=== PATIENT | female | born 1945 | race Caucasian/White ===

== ENCOUNTER → 2017-04-03 | Outpatient (CLI) | payer MEDICARE, OTHER ==
[~2017-04-03] MED LIST: ASCO500T8 PO; ASPI-496 PO; CHOL10002 PO; LEVO175T2 PO; colestipol PO; simvastatin PO
[2017-04-03 11:25] LABS: HEMATOCRIT 42.1 % (34.6-47.8); HEMOGLOBIN 13.9 g/dL (11.7-16.4); WHITE BLOOD COUNT 9.5 x10^3/uL (3.4-10)
[2017-04-03 11:28] LABS: BLOOD UREA NITROGEN 14 mg/dL (7-18)
== END | disposition home or self-care (01) ==
LOC: STAR 09:58
PROVIDERS: ATTEND Neurological Surgery
DX: Z01.818 Encounter for other preprocedural examination (principal); M43.16 Spondylolisthesis, lumbar region; R79.1 Abnormal coagulation profile
CPT/HCPCS: 36415; 71020; 80048; 81003; 85025; 85610; 85730; 93005

== ENCOUNTER 2017-04-18 05:30 | Inpatient (IN) | payer MEDICARE, OTHER ==
[2017-04-03 10:33] VITALS: BP 160/80
[~2017-04-18] VITALS: Ht 165.1 cm; Wt 92.0 kg
[2017-04-18] MEDS ORDERED: SIMV20TA3 PO (06:33)
[2017-04-18] MEDS ORDERED: COLE1TAB2 PO (06:33)
[2017-04-18] MEDS ORDERED: LACTATED RINGERS 1,000 ML IV SCH (06:35)
[2017-04-18] MEDS ORDERED: LIDOCAINE 1%, 2ML ONE (06:38)
[2017-04-18] MEDS ORDERED: MIDAZOLAM 1 MG/ML, 2ML ONE (06:46)
[2017-04-18] MEDS ORDERED: FENTANYL PF 250 MCG/5ML ONE (06:46)
[2017-04-18] MEDS ORDERED: PROPOFOL 10 MG/ML, 20ML ONE (06:47)
[2017-04-18] MEDS ORDERED: SUCCINYLCHOLINE 20 MG/ML, 10ML ONE (06:47)
[2017-04-18] MEDS ORDERED: PROPOFOL 150 ML ONE (06:47)
[2017-04-18] MEDS ORDERED: ROCURONIUM 10 MG/ML,10ML ONE (06:47)
[2017-04-18] MEDS ORDERED: LIDOCAINE 1%, 2ML SQ PRN (07:00)
[2017-04-18] MEDS ORDERED: THROMBIN 5,000 UNIT VIAL TP ONE (07:11)
[2017-04-18] MEDS ORDERED: BUPIVACAINE/PF 0.5% ONE (07:11)
[2017-04-18] MEDS ORDERED: BACITRACIN 50,000 UNIT ONE (07:11)
[2017-04-18] MEDS ORDERED: EPINEPHRINE 1 MG/ML, 1ML ONE (07:11)
[2017-04-18] MEDS ORDERED: VANCOMYCIN 1,000 MG ONE (07:11)
[2017-04-18] MEDS ORDERED: DEXAMETHASONE 4 MG/ML, 1ML ONE ×2 (07:19)
[2017-04-18] MEDS ORDERED: CEFAZOLIN 1,000 MG ONE (07:45)
[2017-04-18] MEDS ORDERED: BUPIVACAINE/PF 0.5% INFIL ONE (08:47)
[2017-04-18] MEDS ORDERED: LABETALOL 5MG/ML, 20ML IV PRN (09:30)
[2017-04-18] MEDS ORDERED: FENTANYL PF 100 MCG/2ML IV PRN (09:30)
[2017-04-18] MEDS ORDERED: HYDROmorphone 1 MG/ML, 1ML IV PRN (09:30)
[2017-04-18] MEDS ORDERED: PROMETHAZINE 25 MG/ML, 1ML IV PRN (09:30)
[2017-04-18] MEDS ORDERED: ACETAMINOPHEN 325 MG TABLET PO PRN (09:30)
[2017-04-18] MEDS ORDERED: ONDANSETRON 2MG/ML, 2ML IVPush PRN ×2 (09:30→10:30)
[2017-04-18] MEDS ORDERED: MEPERIDINE/PF 25MG/0.5ML IVPush PRN (09:30)
[2017-04-18] MEDS ORDERED: hydrALAzine 20 MG/ML, 1ML IV PRN (09:30)
[2017-04-18] MEDS ORDERED: OXYcodone 5 MG/5 ML ORAL.SOL UDC PO PRN (09:30)
[2017-04-18] MEDS ORDERED: ONDANSETRON 2MG/ML, 2ML ONE (09:52)
[2017-04-18] MEDS ORDERED: HYDROmorphone 1 MG/ML, 1ML ONE ×2 (09:56→10:27)
[2017-04-18] MEDS ORDERED: OXYcodone 5 MG/5 ML ORAL.SOL UDC ONE (10:27)
[2017-04-18] MEDS ORDERED: ACETAMINOPHEN 650 MG/20.3 ML UDC ONE (10:27)
[2017-04-18] MEDS ORDERED: BISACODYL 10 MG SUPP PR PRN (10:30)
[2017-04-18] MEDS ORDERED: TIZANIDINE 4MG TABLET PO PRN (10:30)
[2017-04-18] MEDS ORDERED: MAGNESIUM HYDROXIDE 8%, 30ML UDC PO PRN (10:30)
[2017-04-18] MEDS ORDERED: PHARMACY MAY ADJ FOR RENAL FX MC PRN (10:30)
[2017-04-18] MEDS ORDERED: NS + 20MEQ KCL 1,000 ML IV SCH (10:30)
[2017-04-18] MEDS ORDERED: MEPERIDINE/PF 100 MG/ML IM PRN (10:30)
[2017-04-18] MEDS ORDERED: PROMETHAZINE 25 MG/ML, 1ML IM PRN (10:30)
[2017-04-18] MEDS ORDERED: DIPHENHYDRAMINE 50 MG/ML, 1ML IVPush PRN (10:30)
[2017-04-18] MEDS ORDERED: HYDROmorphone PCA 30 MG/30 ML ONE (10:40)
[2017-04-18] MEDS: HYDROmorphone PCA 30 MG/30 ML IV PRN (10:45)
[2017-04-18 12:52] VITALS: BP 120/62
[2017-04-18] MEDS: CEFAZOLIN PMX 1GM/50ML 50 ML IVPB SCH ×2 (16:04→23:32)
[2017-04-18] MEDS: SODIUM CHLORIDE FLUSH 10ML SYR IVF SCH (20:02)
[2017-04-18] MEDS: SIMVASTATIN 20 MG TABLET PO SCH (20:02)
[2017-04-18 21:10] VITALS: BP 100/63
[2017-04-18] MEDS: POTASSIUM CHLORIDE 20 MEQ in SODIUM CHLORIDE 0.9% 1,000 ML IV SCH (23:32)
[2017-04-19 00:08] VITALS: BP 110/71
[2017-04-19 04:39] VITALS: BP 113/72
[2017-04-19 05:00] LABS: HEMATOCRIT 35.3 % (34.6-47.8); HEMOGLOBIN 11.5 g/dL (11.7-16.4); WHITE BLOOD COUNT 15.6 x10^3/uL (3.4-10)
[2017-04-19 05:37] LABS: BLOOD UREA NITROGEN 14 mg/dL (7-18)
[2017-04-19] MEDS: DIAZEPAM 5 MG TABLET PO PRN (06:06)
[2017-04-19] MEDS: LEVOTHYROXINE 175 MCG TABLET PO SCH (06:06)
[2017-04-19 08:02] VITALS: BP 116/69
[2017-04-19] MEDS: SENNA/DOCUSATE TABLET PO SCH (08:12)
[2017-04-19] MEDS: OXYcodone/APAP 10/325MG TABLET PO PRN ×2 (08:13→15:48)
[2017-04-19] MEDS: SODIUM CHLORIDE FLUSH 10ML SYR IVF SCH ×2 (08:14→20:02)
[2017-04-19] MEDS: POTASSIUM CHLORIDE 20 MEQ in SODIUM CHLORIDE 0.9% 1,000 ML IV SCH ×2 (09:36→19:42)
[2017-04-19] MEDS: DEXAMETHASONE 4 MG/ML, 1ML IVPush SCH ×3 (10:33→20:02)
[2017-04-19] MEDS: COLESTIPOL 1 GM TABLET PO SCH (11:43)
[2017-04-19 15:11] VITALS: BP 146/79
[2017-04-19] MEDS: HYDROmorphone PCA 30 MG/30 ML IV PRN (19:48)
[2017-04-19] MEDS: SIMVASTATIN 20 MG TABLET PO SCH (20:01)
[2017-04-19 21:35] VITALS: BP 113/68
[2017-04-20 02:46] VITALS: BP 144/77
[2017-04-20] MEDS: DEXAMETHASONE 4 MG/ML, 1ML IVPush SCH ×3 (03:09→18:03)
[2017-04-20 04:52] LABS: HEMATOCRIT 36.3 % (34.6-47.8); WHITE BLOOD COUNT 13.6 x10^3/uL (3.4-10)
[2017-04-20 05:03] LABS: BLOOD UREA NITROGEN 13 mg/dL (7-18)
[2017-04-20] MEDS: POTASSIUM CHLORIDE 20 MEQ in SODIUM CHLORIDE 0.9% 1,000 ML IV SCH ×3 (05:48→19:13)
[2017-04-20] MEDS: LEVOTHYROXINE 175 MCG TABLET PO SCH (05:50)
[2017-04-20] MEDS: OXYcodone/APAP 10/325MG TABLET PO PRN ×3 (07:05→18:06)
[2017-04-20 07:50] VITALS: BP 150/84
[2017-04-20] MEDS: SENNA/DOCUSATE TABLET PO SCH (10:12)
[2017-04-20] MEDS: SODIUM CHLORIDE FLUSH 10ML SYR IVF SCH ×2 (10:12→19:19)
[2017-04-20] MEDS: COLESTIPOL 1 GM TABLET PO SCH (11:56)
[2017-04-20 14:01] VITALS: BP 114/73
[2017-04-20] MEDS: SIMVASTATIN 20 MG TABLET PO SCH (19:19)
[2017-04-20 20:29] VITALS: BP 135/80
[2017-04-20] MEDS: DIAZEPAM 5 MG TABLET PO PRN (21:45)
[2017-04-21 02:38] VITALS: BP 109/68
[2017-04-21] MEDS: LEVOTHYROXINE 175 MCG TABLET PO SCH (04:33)
[2017-04-21 04:46] LABS: HEMOGLOBIN 12.7 g/dL (11.7-16.4); WHITE BLOOD COUNT 16.3 x10^3/uL (3.4-10)
[2017-04-21 04:55] LABS: BLOOD UREA NITROGEN 17 mg/dL (7-18)
[2017-04-21] MEDS: OXYcodone/APAP 10/325MG TABLET PO PRN (05:34)
[2017-04-21 07:50] VITALS: BP 114/73
[2017-04-21] MEDS: SENNA/DOCUSATE TABLET PO SCH (09:00)
[2017-04-21] MEDS: COLESTIPOL 1 GM TABLET PO SCH (09:00)
[2017-04-21] MEDS: SODIUM CHLORIDE FLUSH 10ML SYR IVF SCH (09:00)
[2017-04-21] MEDS: DIAZEPAM 5 MG TABLET PO PRN (09:07)
[2017-04-21] MEDS ORDERED: OXYC-307 PO (09:25)
[2017-04-21] MEDS ORDERED: TIZA2CAP2 PO (09:27)
[2017-04-21] MEDS ORDERED: DIAZ5TAB PO (09:28)
[2017-04-21] MEDS ORDERED: METH4TAB2 PO (09:29)
== END 2017-04-21 10:55 | disposition home or self-care (01) | DRG 460 ==
LOC: ORIP 05:30 → 4NOR 11:56 → DCLOUNGE 04-21 10:28
PROVIDERS: ADMIT Neurological Surgery; ATTEND Neurological Surgery
PROC: 3E0U0GB Introduction of Recombinant Bone Morphogenetic Protein into Joints, Open Approach (ICD-10-PCS; 2017-04-18)
PROC: 0SG00AJ Fusion of Lumbar Vertebral Joint with Interbody Fusion Device, Posterior Approach, Anterior Column, Open Approach (ICD-10-PCS; principal; 2017-04-18 07:30)
DX: M43.16 Spondylolisthesis, lumbar region (principal); I10 Essential (primary) hypertension; M54.16 Radiculopathy, lumbar region; M19.90 Unspecified osteoarthritis, unspecified site; Z88.5 Allergy status to narcotic agent; Z88.8 Allergy status to other drugs, medicaments and biological substances; Z86.711 Personal history of pulmonary embolism; Z87.891 Personal history of nicotine dependence; Z82.61 Family history of arthritis
CPT/HCPCS: 36415; 72100; 80048; 85025; 95938; 95941; C1713; C1776; J0171; J0690; J1100; J1170; J2250; J2405; J2704; J3010; J3370; J3480; J3490; C1762; J0330; J7030; J7120

== ENCOUNTER → 2018-10-30 | Outpatient (CLI) | payer MEDICARE, OTHER ==
[~2018-10-30] MED LIST changes: +COLE1TAB2 PO; +DIAZ5TAB PO; +METH4TAB2 PO; +OXYC-307 PO; +SIMV20TA3 PO; +TIZA2CAP2 PO
== END | disposition home or self-care (01) ==
LOC: CFH 07:12
PROVIDERS: ATTEND Nurse Practitioner Family
DX: R42 Dizziness and giddiness (principal); R06.02 Shortness of breath; I10 Essential (primary) hypertension; E78.5 Hyperlipidemia, unspecified; Z87.891 Personal history of nicotine dependence
CPT/HCPCS: 93306

== ENCOUNTER → 2020-08-02 | Outpatient (CLI) | payer MEDICARE, OTHER ==
[~2020-08-02] MED LIST changes: -OXYC-307 PO; +OXYC-380 PO; +REGADENOSON 0.4 MG/5 ML SYRINGE ONE; +SIMV20TA19 PO; -SIMV20TA3 PO
== END | disposition home or self-care (01) ==
LOC: CFH 12:17
PROVIDERS: ATTEND Registered Nurse
DX: R06.02 Shortness of breath (principal); R07.9 Chest pain, unspecified
CPT/HCPCS: 78452; 93017; A9502; J2785